=== PATIENT | female | born 1995 | race Two or more races ===

== ENCOUNTER 2021-08-06 15:48 | Emergency (ER) | payer OTHER ==
[~2021-08-06] VITALS: Ht 160 cm; Wt 63.5 kg
[2021-08-06] MEDS ORDERED: KETO10TA2 PO (17:27)
== END 2021-08-06 17:34 | disposition home or self-care (01) ==
LOC: ER 15:48
DX: S62.623A Displaced fracture of middle phalanx of left middle finger, initial encounter for closed fracture (principal); S62.652A Nondisplaced fracture of middle phalanx of right middle finger, initial encounter for closed fracture; W18.39XA Other fall on same level, initial encounter; Y93.89 Activity, other specified; Y92.89 Other specified places as the place of occurrence of the external cause; Y99.8 Other external cause status